=== PATIENT | female | born 1935 | race Caucasian/White ===

== ENCOUNTER 2021-08-20 09:43 | Outpatient (CLI) | payer OTHER ==
[2021-08-20 11:03] LABS: Estimated GFR-MDRD - POC Greater than 90
== END 2021-08-20 09:44 | disposition home or self-care (01) ==
LOC: NM 09:43
PROVIDERS: ATTEND Otolaryngology Otolaryngic Allergy
DX: E21.3 Hyperparathyroidism, unspecified (principal); D35.1 Benign neoplasm of parathyroid gland
CPT/HCPCS: 70492; 78072; 82565; A9500